=== PATIENT | male | born 1960 | race Caucasian/White ===

== ENCOUNTER 2020-09-24 08:10 | Day surgery (SDC) | payer BC ==
--- NOTE | 2020-09-23 12:20 | PCM.SN.2 ---
- Free Text/Narrative Note: Right selective femoral nerve block at the adductor canal for post-procedure pain control under US guidance requested by Dr. Clark. Time Out: 1148 Start: 1148 End: 1153 Chart reviewed. Consent signed. Questions answered. Appropriate monitors applied. Time out performed. Right mid-shaft femur identified with ultrasound, scanning medially of femur, the femoral artery in the adductor canal visualized, and the femoral nerve located laterally to the artery. The skin was prepped lateral to the ultrasound probe with chlorahexadine times two. The 21ga 4 insulated block needle was inserted under direct ultrasound guidance into the adductor canal. 25mL of 0.5% ropivacaine with 1:200,000 epinephrine was injected circumferentially around the nerve with intermittent negative aspiration noted. Patient tolerated the procedure well. Sterile technique noted along with sterile gloves, mask, and sterile probe cover. See picture on progress note and vital signs on nurses notes. Block completed in PACU. Imelda Berry CRNA
--- NOTE | 2020-09-23 12:31 | PCM.PREANE ---
Preanesthetic Assessment - Procedure Proposed Procedure: Right Total Knee Arthroplasty - Anesthesia/Transfusion/Family Hx Anesthesia History: Prior Anesthesia Without Reaction Family History of Anesthesia Reaction: No Transfusion History: No Prior Transfusion(s) Intubation History: Unknown - Review of Systems General: No Symptoms Pulmonary: No Symptoms (Former smoker: quit 1999) Cardiovascular: No Symptoms (HTN, Elevated cholesterol) Gastrointestinal: No Symptoms Neurological: No Symptoms Other: Reports: None - Physical Assessment NPO Status Date: 09/23/20 NPO Status Time: 21:00 Vital Signs: HR:70 Sat:96% Temp:97.8 Resp:18 B/P:156/90 Height: 1.68 m Weight: 94 kg ASA Class: 2 Mental Status: Alert & Oriented x3 Airway Class: Mallampati = 2 Dentition: Reports: Normal Dentition, [place](s), [place] Thyro-Mental Finger Breadths: 3 Mouth Opening Finger Breadths: 3 ROM/Head Extension: Full Lungs: Clear to Auscultation, Normal Respiratory Effort Cardiovascular: Regular Rate, Regular Rhythm, No Murmurs - Lab Values: Laboratory Last Values MRSA (PCR) Negative 09/11/20 14:55 Above labs reviewed and noted and within acceptable ranges to proceed with scheduled procedure. - Imaging/EKG Impressions: EKG: SR rate=69, LAD Echocardiogram: EF: 60-65% (2017) CXR: Negative - Allergies Allergies/Adverse Reactions: Allergies Allergy/AdvReac Type Severity Reaction Status Date / Time No Known Allergies Allergy Verified 09/23/20 13:16 - Anesthesia Plan Pre-Op Medication Ordered: None, Other (Preoperative oral pain meds(lyrica, tylenol, oxycodone) @) - Acknowledgements Anesthesia Type Planned: Spinal (Right adductor canal block under US guidance for post operative pain control requested by Dr. Clark.) Pt an Appropriate Candidate for the Planned Anesthesia: Yes Alternatives and Risks of Anesthesia Discussed w Pt/Guardian: Yes Pt/Guardian Understands and Agrees with Anesthesia Plan: Yes PreAnesthesia Questionnaire - HOME MEDS Home Medications: Home Meds Aspirin [Aspirin EC] 325 mg PO BID #84 tab 09/23/20 [Rx] Cholecalciferol (Vitamin D3) [Vitamin D3] 5,000 unit PO DAILY 09/23/20 [History] Cyclobenzaprine [Flexeril] 10 mg PO BID PRN #20 tab 09/23/20 [Rx] Ginkgo Biloba 40 mg PO DAILY 09/23/20 [History] Lactobacillus Combination No.4 [Probiotic] 1 cap PO DAILY 09/23/20 [History] Multivitamin 1 tab PO DAILY 09/23/20 [History] Rosuvastatin [Crestor] 10 mg PO DAILY 09/23/20 [History] Triamcinolone Acetonide [Triamcinolone Acetonide 0.1% Crm] 1 dose TOP BID PRN 09/23/20 [History] amLODIPine Besylate [Norvasc] 10 mg PO DAILY 09/23/20 [History] lisinopriL [Lisinopril] 20 mg PO DAILY 09/23/20 [History] oxyCODONE 5 - 10 mg PO Q4H PRN #40 tab 09/23/20 [Rx] - CURRENT (IN HOUSE) MEDS Current Meds: Current Medications Acetaminophen (Tylenol) 975 mg PO ONETIME KAYLAH Stop: 09/24/20 18:00 Morphine Sulfate 8 mg/Epinephrine HCl 0.3 mg/Cefuroxime Sodium 750 mg/Ketorolac Tromethamine 30 mg/Sodium Chloride 7.9 ml 0 mg .XX ASDIRECTED PRN PRN Reason: Pain Stop: 09/24/20 18:00 Lactated Ringer's (Ringers, Lactated) 1,000 mls @ 125 mls/hr IV ASDIRECTED KAYLAH Stop: 09/24/20 23:00 Lidocaine/Sodium Bicarbonate (Buffered Lidocaine 1% In Ns 8.4%) 0.25 ml IDERM ONETIME PRN PRN Reason: Prior to IV Start Stop: 09/24/20 18:00 Oxycodone HCl (Oxycontin) 10 mg PO ONETIME KAYLAH Stop: 09/24/20 18:00 Pregabalin (Lyrica) 50 mg PO ONETIME KAYLAH Stop: 09/24/20 18:00 Sodium Chloride (Saline Flush) 10 ml FLUSH ASDIRECTED PRN PRN Reason: Keep Vein Open Stop: 09/24/20 18:00
[~2020-09-24 08:10] MED LIST: Acetaminophen 325 MG Tab PO SCH; EPINEPHrine 1 MG/ML SDV ONE; Ketamine 500 mg/10 ML MDV ONE; Ketorolac 30 MG/ML SDV ONE; Lactated Ringers 1,000 ML IV SCH; Lactated Ringers 2,000 ML ONE; Lidocaine 1% 4 ML ONE; Lidocaine 1%/Sod Bicarbonate in NS 8.4% 1 ML Syringe IDERM PRN; Midazolam 1 MG/ML 2 ML SDV ONE; Morphine 8 MG, EPINEPHrine 0.3 MG, Cefuroxime 750 MG, Ketorolac 30 MG, Sodium Chloride ... PRN; Ondansetron 4 MG/2 ML SDV ONE; Pregabalin 25 MG Cap PO SCH; Propofol 200 MG/20 ML SDV ONE; Ropivacaine 0.5% 5 MG/ML 30 ML SDV ONE; Sodium Chloride 0.9% 10 ML Syringe FLUSH PRN; ceFAZolin 1 GM Vial ONE; fentaNYL 100 MCG/2 ML SDV ONE; oxyCODONE ER 10 MG TAB.ER PO SCH
[2020-09-24] MEDS ORDERED: diphenhydrAMINE 50 MG/ML SDV IVPUSH PRN (10:26)
[2020-09-24] MEDS ORDERED: Ondansetron 4 MG/2 ML SDV IVPUSH PRN (10:26)
[2020-09-24] MEDS ORDERED: Albuterol 0.083% 2.5 MG/3 ML Neb Soln NEB PRN (10:26)
[2020-09-24] MEDS ORDERED: ePHEDrine 50 MG/ML SDV IVPUSH PRN (10:26)
[2020-09-24] MEDS ORDERED: HYDROmorphone 0.5 MG/0.5 ML Syringe IVPUSH PRN (10:26)
[2020-09-24] MEDS ORDERED: ePHEDrine 50 MG/ML SDV ONE (10:31)
[2020-09-24] MEDS: Vancomycin 1 GM SDV ONE ×2 (11:17→11:21)
--- NOTE | 2020-09-24 11:44 | PCM.POSTAN ---
POST ANESTHESIA ASSESSMENT - MENTAL STATUS Mental Status: Alert - VITAL SIGNS Vital Signs: Last Vital Signs Temp 97.5 09/24/20 1139 Pulse 86 09/24/20 1139 Resp 16 09/24/20 1139 BP 106/63 09/24/20 1139 Pulse Ox 93% 09/24/20 1139 - RESPIRATORY Respiratory Status: Respiratory Rate WNL, Airway Patent, O2 Saturation Stable, Supplemental Oxygen - CARDIOVASCULAR CV Status: Pulse Rate WNL, Blood Pressure Stable - GASTROINTESTINAL GI Status: No Symptoms - POST OP HYDRATION Hydration Status: Adequate & Stable
[2020-09-24] MEDS: fentaNYL 100 MCG/2 ML SDV IVPUSH PRN ×2 (12:00→12:20)
[2020-09-24] MEDS ORDERED: oxyCODONE 5 MG Tab PO PRN ×2 (12:59→13:14)
--- NOTE | 2020-09-24 13:38 | PCM48HPAN ---
Post Anesthesia Note - EVALUATION WITHIN 48HRS OF ANESTHETIC Vital Signs in Normal Range: Yes Patient Participated in Evaluation: Yes Respiratory Function Stable: Yes Airway Patent: Yes Cardiovascular Function Stable: Yes Hydration Status Stable: Yes Pain Control Satisfactory: Yes Nausea and Vomiting Control Satisfactory: Yes Mental Status Recovered: Yes Vital Signs: Last Vital Signs Temp 36.1 C 09/24/20 12:50 Pulse 62 09/24/20 13:20 Resp 14 09/24/20 13:20 BP 130/79 09/24/20 13:20 Pulse Ox 96 09/24/20 13:20
[2020-09-24] MEDS ORDERED: Cyclobenzaprine 10 MG Tab PO ONE (14:29)
--- NOTE | 2020-09-25 08:15 | CR ---
Right knee: AP and lateral views of the right knee were obtained. Comparison: Prior right knee CT study of 09/11/20. Knee prosthesis is noted. Patellar prosthesis is noted. Prosthetic components appear aligned. Soft tissue air is noted. No acute osseous finding is seen. Impression: 1. Satisfactory postoperative radiographic appearance of recently placed right knee prosthesis. Diagnostic code #2
--- NOTE | 2020-10-06 10:31 | PCM.OPNOTE ---
- General Post-Op/Procedure Note Date of Surgery/Procedure: 09/24/20 Operative Procedure(s): right total knee arthroplasty with solo robotic assist Pre Op Diagnosis: right knee osteoarthrosis Post-Op Diagnosis: Same Anesthesia Technique: Local, MAC, Spinal Primary Surgeon: Kunal Clark Anesthesia Provider: Imelda Beryr Farmworker Fur: Mimi Rivero Farmworker Fur: Lisa Dodson EBL in mLs: 150 Complications: None Condition: Good Free Text/Narrative:: 4 femur 5 tibia 10mm 32x10
--- NOTE | 2020-10-06 12:05 | OR ---
DATE OF OPERATION: 09/24/2020 SURGEON: Kunal Clark MD OPERATION PERFORMED: Right total knee arthroplasty with Titus robotic assist. PREOPERATIVE DIAGNOSIS: Right knee osteoarthrosis. POSTOPERATIVE DIAGNOSIS: Right knee osteoarthrosis. ANESTHESIA: Local MAC with spinal. ANESTHESIA PROVIDER: Imelda Berry CRNA. ASSISTANTS: Mimi Rivero PA-C; and Lisa Dodson LPN. ESTIMATED BLOOD LOSS: 150 mL. COMPLICATIONS: None. CONDITION: Stable. IMPLANTS: 1. Jose J size 4 press-fit CR femur. 2. Jose J size 5 press-fit tibial baseplate. 3. [place] size 5, 10 mm CS polyethylene insert. 4. [place] size 32 x 10 mm press-fit asymmetric patella. DESCRIPTION OF PROCEDURE: The patient was identified in the preoperative holding area. Proper site was marked and identified by the surgeon. The patient was taken back to the operating theater where after adequate anesthesia, the patient had a nonsterile tourniquet applied to the right lower extremity. The right lower extremity was then sterilely prepped and draped in the usual sterile fashion. OR time-out was performed. The patient received 2 g IV Ancef. Right lower extremity then had the leg hathaway boot applied. It was then exsanguinated and tourniquet was insufflated to 250 mmHg. Standard anterior incision was made. Medial parapatellar arthrotomy was created. Deep fibers of the MCL were raised and anterior fat pad was resected. Attention was turned to the patella. Patella measured a 23, it was resected to 14 for a 32 x 10 mm patella. Drill holes were then drilled and found to be adequate. At this time, two 4.0 pins were placed intra-incisionally on the femur and two extra incisionally 4 fingerbreadths below the level of the tibial tubercle for the Jose J Titus robotic arrays on both the femur and the tibia. The tibia and femoral checkpoints were then applied as well. Hip center rotation was obtained. The medial and lateral malleoli were marked using the green probe. At this time, then 40 points were obtained off both the femur and the tibia for the Jose J Titus robotic plan. The patient's knee was brought to full extension. Valgus stress was applied. At this time, it was brought to 90 degrees and then again, stress was applied using a curved osteotome. The plan was then put in place for 19 mm cuts in both flexion and extension for the patient after rotation and varus was placed in both the femur and the tibia. The [facility] robotic arm was then brought in. The tibial cut, the anterior femoral cut, the anterior chamfer cut, and the posterior femoral cut were then completed and found to be adequate. A saw blade was then changed and the distal femoral cut as well as posterior chamfer cut was completed. All cuts were found to be adequate. All bony fragments were removed. The medial and lateral meniscus were resected. Posterior osteophytes were removed. Trial implants were then placed. The patient's knee was brought into full extension with a 9 mm poly, it was found to have a small amount of play, so we did do a 10 mm polyethylene. The patient had no varus-valgus instability and full range of motion, 0 to 100+ degrees with no instability noted. At this time, the femoral drill holes were drilled. The tibia was stamped and drilled from the proper rotation. All trial implants were then removed. The size 5 tibia was impacted into place. A size 4 femur was impacted into place. The 10 mm CS polyethylene insert was impacted into place. The patient's knee was brought into full extension and a 32 x 10 mm press-fit patella was press-fit into place. The tourniquet was deflated. Bleeders were cauterized. 1 L pulse lavage irrigation with Ancef was irrigated through the knee along with 400 mL of IrriSept irrigation. The periarticular injection was completed. Topical tranexamic acid and vancomycin powder applied. #2 barbed sutures were used for closure of the medial parapatellar arthrotomy. 2-0 Vicryl was used subcutaneously as well as Stratafix and a Prineo was used for skin closure. The patient had a sterile soft dressing applied and was sent to PACU in stable condition. MMODAL /[id number]
== END 2020-09-24 15:02 | disposition home or self-care (01) ==
LOC: JD.SDS 08:10
PROVIDERS: ATTEND Orthopaedic Surgery
DX: M17.11 Unilateral primary osteoarthritis, right knee (principal); M25.761 Osteophyte, right knee; I10 Essential (primary) hypertension; E78.5 Hyperlipidemia, unspecified; E78.00 Pure hypercholesterolemia, unspecified; R73.03 Prediabetes; L30.9 Dermatitis, unspecified; E66.9 Obesity, unspecified; Z68.34 Body mass index [BMI] 34.0-34.9, adult; Z79.899 Other long term (current) drug therapy; Z87.891 Personal history of nicotine dependence; Z79.82 Long term (current) use of aspirin; Z98.890 Other specified postprocedural states
CPT/HCPCS: 27447; 73560; 87641; 97116; 97161; 97165; A9270; C1713; C1776; J0171; J0690; J0697; J1885; J2250; J2270; J2370; J2405; J2704; J2795; J3010; J3370; J7120; 01402; 64450

== ENCOUNTER 2021-08-15 07:17 | Emergency (ER) | payer BC, OTHER ==
[2021-08-15] MEDS ORDERED: Sodium Chloride 0.9% 10 ML Syringe FLUSH PRN (07:52)
[2021-08-15] MEDS ORDERED: LORazepam 2 MG/ML SDV IVPUSH ONE (07:54)
[2021-08-15] MEDS ORDERED: Sodium Chloride 0.9% 1,000 ML IV SCH (08:00)
== END 2021-08-15 09:32 | disposition home or self-care (01) ==
LOC: JD.ED 07:17
DX: U07.1 COVID-19 (principal); R73.9 Hyperglycemia, unspecified; M10.9 Gout, unspecified; Z79.82 Long term (current) use of aspirin
CPT/HCPCS: 36415; 71045; 80053; 85025; 85379; 86140; 96374; 99284; J2060; J7030

== ENCOUNTER 2024-07-02 07:10 | Emergency (ER) | payer MEDICARE, OTHER ==
[2024-07-02] MEDS: Sodium Chloride 0.9% 10 ML Syringe FLUSH PRN (07:35)
[2024-07-02] MEDS: Sodium Chloride 0.9% 45 ML IV SCH (07:51)
[2024-07-02] MEDS: Iopamidol 755 Mg/ML 100 ML Bottle IVPUSH ONE (07:51)
[2024-07-02 07:58] LABS: BASOPHILS ABSOLUTE AUTO 0.1 K/mm3 (0.0-0.2); BASOPHILS PERCENT AUTO 0.9 % (0.0-1.0); EOSINOPHILS ABSOLUTE AUTO 0.2 K/mm3 (0.0-0.4); EOSINOPHILS PERCENT AUTO 3.4 % (0.0-6.0); HEMATOCRIT 48.2 % (42.0-52.0); HEMOGLOBIN 16.2 gm/dl (14.0-18.0); LYMPHOCYTES ABSOLUTE AUTO 1.7 K/mm3 (1.0-4.8); LYMPHOCYTES PERCENT AUTO 31.5 % (24.0-44.0); MEAN CORPUSCULAR HEMOGLOBIN 29.5 pg (28.0-32.0); MEAN CORPUSCULAR HGB CONC 33.6 g/dl (32.0-36.0); MEAN CORPUSCULAR VOLUME 87.8 fl (83.0-99.0); MEAN PLATELET VOLUME 9.7 fl (9.4-12.4); MONOCYTES ABSOLUTE AUTO 0.4 K/mm3 (0.0-0.8); MONOCYTES PERCENT AUTO 8.2 % (0.0-8.0); PLATELET COUNT,PLT 202 K/mm3 (150-400); RED BLOOD CELL COUNT 5.49 M/mm3 (4.52-5.90); WHITE BLOOD CELL COUNT,WBC 5.37 K/mm3 (3.9-11.3)
[2024-07-02 08:05] LABS: INR 0.97; PROTHROMBIN TIME 10.3 SECONDS (9.7-12.0)
[2024-07-02 08:06] LABS: PTT,PARTIAL THROMBOPLSTIN TIME 26.1 SECONDS (21.7-31.4)
[2024-07-02 08:13] LABS: A/G RATIO 1.2 (1-2); ALBUMIN 4.3 g/dl (3.4-5.0); ANION GAP 15.3 (5-15); BUN/CREATININE RATIO 12.7 (14-18); CALCIUM 9.5 mg/dL (8.5-10.1); CREATININE 1.1 mg/dL (0.7-1.3); EST CRCL DRUG DOSING (CG) 59.61 mL/min; POTASSIUM,K 4.3 mEq/L (3.5-5.1); PROTEIN TOTAL,TP 7.8 g/dl (6.4-8.2)
[2024-07-02] MEDS: predniSONE 20 MG Tab PO ONE (09:05)
== END 2024-07-02 13:05 | disposition home or self-care (01) ==
LOC: JD.ED 07:10
DX: G51.0 Bell's palsy (principal); R51.9 Headache, unspecified; I10 Essential (primary) hypertension; E78.00 Pure hypercholesterolemia, unspecified; Z79.899 Other long term (current) drug therapy; Z86.16 Personal history of COVID-19
CPT/HCPCS: 36415; 70450; 70496; 70498; 70551; 80053; 84484; 85025; 85610; 85730; 93005; 99284; J3490; J7512; Q9967; 93010